=== PATIENT | female | born 1960 ===

== ENCOUNTER → 2019-02-28 22:15 | Outpatient (REF) | payer OTHER, SELFPAY ==
[2019-03-01 00:21] LABS: Alanine Aminotransferase 31 IU/L (9-52); Albumin 4.5 g/dL (3.5-5.0); Albumin Globulin Ratio 1.7 (1.0-2.8); Alkaline Phosphatase 79 U/L (38-126); Aspartate Aminotransferase 20 IU/L (14-36); BUN Creatinine Ratio 18.8 (6-22); Bilirubin Total 0.5 mg/dL (0.2-1.3); Blood Urea Nitrogen 15 mg/dL (7-17); Calcium 9.8 mg/dL (8.4-10.2); Carbon Dioxide 29 mmol/L (22-32); Chloride 105 mmol/L (98-107); Cholesterol 203 mg/dL (140-199); Estimated Glomerular Filt Rate > 60.0 mL/min (>60); Globulin 2.6 g/dL (1.7-4.1); Glucose 89 mg/dL (70-100); HDL Cholesterol 65 mg/dL (40-60); HEMOLYSIS < 15 (0-50); LDL Cholesterol Calculated 121 mg/dL (<100); Potassium 4.5 mmol/L (3.4-5.1); Sodium 141 mmol/L (137-145); Total Protein 7.1 g/dL (6.3-8.2); Triglycerides 87 mg/dL (35-150)
[2019-03-01 00:56] LABS: Hematocrit 46.8 % (36-46); Hemoglobin 15.4 g/dL (12.0-16.0); Mean Corpuscular HGB Conc 32.9 % (30-36); Mean Corpuscular Hemoglobin 29.4 PG (26-34); Mean Corpuscular Volume 89.5 fL (80-100); Platelet Count 240 X10^3/uL (150-400); Red Blood Cell Count 5.23 X10^6/uL (4.0-5.2); Red Cell Distribution Width 14.5 % (11.6-14.8)
[2019-03-01 01:35] LABS: Add Manual Diff / Slide Review YES
[2019-03-01 01:48] LABS: Free T3, Triiodothyronine Free 6.38 pg/mL (2.77-5.27); T4 Total Thyroxine 9.81 ug/dL (5.5-11.0)
[2019-03-01 01:50] LABS: Neutrophils Absolute Manual 2550 /uL (3000-5900); RBC Morphology Normal Morphology; Total Cells Counted 100
[2019-03-01 02:01] LABS: Thyroid Stimulating Hormone 0.13 uIU/mL (0.47-4.68)
== END ==
LOC: LAB 22:15
PROVIDERS: Visit Provider Naturopath
DX: E03.9 Hypothyroidism, unspecified (principal); Z00.00 Encounter for general adult medical examination without abnormal findings
CPT/HCPCS: 36415; 80053; 80061; 84436; 84443; 84481; 85025

== ENCOUNTER → 2019-03-20 21:50 | Outpatient (REF) | payer OTHER, SELFPAY ==
[2019-03-20 22:57] LABS: Add Manual Diff / Slide Review NO; Basophils Absolute Auto 0 /uL (0-100); Basophils Percent Auto 0.3 % (0-2); Eosinophils Absolute Auto 100 /uL (0-450); Eosinophils Percent Auto 1.8 % (2-4); Hematocrit 44.1 % (36-46); Hemoglobin 15.1 g/dL (12.0-16.0); Lymphocytes Absolute Auto 1400 /uL (1100-4500); Mean Corpuscular HGB Conc 34.2 % (30-36); Mean Corpuscular Hemoglobin 29.7 PG (26-34); Mean Corpuscular Volume 86.9 fL (80-100); Monocytes Absolute Auto 300 /uL (0-900); Monocytes Percent Auto 10.5 % (3-14); Neutrophils Absolute Auto 1400 /uL (1500-7000); Neutrophils Percent Auto 43.4 % (50-75); Platelet Count 160 X10^3/uL (150-400); Red Blood Cell Count 5.08 X10^6/uL (4.0-5.2); Red Cell Distribution Width 13.7 % (11.6-14.8); White Blood Cell Count 3.3 X10^3/uL (4.5-11.0)
[2019-03-20 23:05] LABS: Erythrocyte Sedimentation Rate 12 MM/HR (0-20)
[2019-03-20 23:24] LABS: Thyroid Stimulating Hormone 0.04 uIU/mL (0.47-4.68)
== END ==
LOC: LAB 21:50
PROVIDERS: Visit Provider Naturopath
DX: R69 Illness, unspecified (principal); R53.83 Other fatigue; E03.9 Hypothyroidism, unspecified
CPT/HCPCS: 36415; 84443; 85025; 85651